=== PATIENT | male | born 1950 | race Two or more races ===

== ENCOUNTER → 2017-03-30 | Outpatient (CLI) | payer MEDICARE, OTHER ==
[~2017-03-30] MED LIST: AMLO1CAP8 PO; CIPR500T PO; CLOP75TA PO; LISI1TAB7 PO; METO-269 PO; TAMS0.4C2 PO
--- NOTE | 2017-04-01 10:21 | EKG ---
[facility] [address] [place] [address] Test Date: 2017-04-01 Test Time: 08:19:05 Pat Name: TRACEE SALES Department: Room: Gender: M [employer]: : [id number] Requested By: LUCA ROCHE Order Number: [id number] Reading MD: Luca Roche Interpretive Statements Patient in atrial fibrillation, with pauses up to 2.4 seconds and multiple episodes of RVR, rates up to 160 BPM. Frequent PVC's with Bigeminy and episodes of 3 and 4 beats V-Tach Electronically Signed On 04-01-2017 11:34:11 CDT by Luca Roche
== END | disposition home or self-care (01) ==
LOC: EKG 08:26
PROVIDERS: ATTEND Internal Medicine Cardiovascular Disease
DX: I48.0 Paroxysmal atrial fibrillation (principal); R55 Syncope and collapse; I20.8 Other forms of angina pectoris
CPT/HCPCS: 93226

== ENCOUNTER → 2017-04-16 | Outpatient (CLI) | payer MEDICARE, OTHER ==
[~2017-04-16] MED LIST changes: +AMLO5TAB2 PO; +ASPI-252 PO; +FINA5TAB4 PO; +LISI-334 PO; +SOTA80TA48 PO; +WARF2.5T71 PO
--- NOTE | 2017-04-16 09:10 | KCIC ---
Indication: Right knee pain. Time of exam 8:43 AM 3 views of the right knee were obtained. There is medial and patellofemoral compartmental degenerative change with joint space narrowing and marginal spurring. There is spurring of the tibial spines. No fracture, dislocation or effusion is seen. IMPRESSION: Degenerative changes. No acute bony abnormality is detected. Electronically signed by: Isaac Caicedo MD (04/16/2017 9:07 AM) [id number]
--- NOTE | 2017-04-16 09:11 | KCIC ---
INDICATION: Right hip pain and groin pain. Adenopathy. TECHNIQUE: 2 views of the right hip and an AP view of the pelvis are submitted for review. No comparison is available. FINDINGS: There is advanced osteoarthritis in the right hip joint with remodeling of the femoral head, subchondral sclerosis, and narrowing of the joint space most notably superiorly. Acetabular and femoral head spurring also are noted. An acute fracture or dislocation is not identified. AP pelvis demonstrates no pelvic fracture. There are mild degenerative changes in the left hip. There are mild degenerative changes in the spine. IMPRESSION: Advanced osteoarthritis in the right hip with remodeling of the femoral head, spurring, and loss of joint space. Electronically signed by: Kyle Olmos MD (04/16/2017 9:08 AM) [id number]
--- NOTE | 2017-04-16 10:07 | KCIC ---
Indication: Right lower quadrant pain. Study is performed evaluate for inguinal hernia. Sonographic interrogation of the right lower quadrant and right groin was performed. No definite inguinal hernia is identified. No fluid collection is seen. The right common femoral artery is unremarkable. There are small lymph nodes in the right groin. The largest measures 1.7 x 0.6 x 1.8 cm. A second node measures 1.1 x 0.5 x 1.0 cm. IMPRESSION: Essentially unremarkable right groin and right lower quadrant ultrasound. Electronically signed by: Isaac Caicedo MD (04/16/2017 10:03 AM) [id number]
== END | disposition home or self-care (01) ==
LOC: KCIC MRI 08:20
PROVIDERS: ATTEND Family Medicine
DX: M16.11 Unilateral primary osteoarthritis, right hip (principal); M17.11 Unilateral primary osteoarthritis, right knee; R10.31 Right lower quadrant pain
CPT/HCPCS: 72170; 73502; 73562; 93975